=== PATIENT | female | born 1960 | race African-American/Black ===

== ENCOUNTER 2017-08-09 16:09 | Inpatient (IN) | payer BC ==
[~2017-08-09] VITALS: Ht 175.3 cm; Wt 96.2 kg
[2017-08-09] MEDS ORDERED: ALBUTEROL SULFATE 2.5 MG/3 ML NEBU. CONT NEB ONE ×2 (16:15→18:45)
[2017-08-09] MEDS ORDERED: methylPREDNISolone SOD SUCC PF 125 MG/2 ML VIAL. IV ONE (16:15)
[2017-08-09] MEDS ORDERED: IPRATROPIUM BROMIDE 0.5 MG/2.5 ML NEBU. NEB ONE ×2 (16:15→18:45)
--- NOTE | 2017-08-09 16:22 | PHYS DOC ---
Adult General Chief Complaint Chief Complaint: ALLERGIC REACTION HPI HPI Patient is a 57 year old female who presents with acute onset shortness breath, sweats and chest tightness with wheezing while at the dentist office. Patient is a just be injected when symptoms began. She states she has numerous medication allergies. Denies hives, oral lingual or airway swelling chest tightness. Patient hypoxic and hypertensive on EMS arrival. Albuterol breathing treatment given and patient placed on oxygen. Some improvement prior to ED arrival. Patient is a one pack per day smoker. Denies history of COPD, bronchitis, emphysema, asthma or chronic lung disease. No other acute symptoms or complaints. History of this obtained from the patient and from EMS[] Review of Systems Review of Systems Review symptoms as per history of present illness all other review symptoms All other systems were reviewed and found to be within normal limits, except as documented in this note. Current Medications Current Medications Current Medications Medications (Trade) Dose Ordered Sig/Joao Start Time Stop Time Status Last Admin Dose Admin Albuterol Sulfate (Ventolin Neb Soln) 10 mg 1X ONCE 08/09/17 16:15 08/09/17 16:22 DC 08/09/17 16:54 10 MG Ipratropium [place] (Atrovent) 0.5 mg 1X ONCE 08/09/17 16:15 08/09/17 16:22 DC 08/09/17 16:54 0.5 MG Methylprednisolone Sodium Succinate (SOLU-Medrol 125MG VIAL) 125 mg 1X ONCE 08/09/17 16:15 08/09/17 16:22 DC 08/09/17 16:35 125 MG Allergies Allergies Allergies Coded Allergies Type Severity Reaction Last Updated Verified articaine Allergy Intermediate 08/09/17 Yes aspirin Allergy Intermediate 08/09/17 Yes ibuprofen Allergy Intermediate 08/09/17 Yes morphine Allergy Intermediate 08/09/17 Yes Physical Exam Physical Exam Constitutional: Well developed, well nourished, anxious,. [] HENT: Normocephalic, atraumatic, bilateral external ears normal, oropharynx moist, no oral or airway swelling, nose normal. [] Eyes: PERRLA, EOMI, conjunctiva normal, no discharge. [] Neck: Normal range of motion, no tenderness, supple, no stridor. [] Cardiovascular:Heart rate regular rhythm, no murmur [] Lungs & Thorax: Patient's labored, apparently with pursed lip breathing, tachypnea, talks in 3-5 word sentences, breath sounds moderately diminished with expiratory wheezes.[] Skin: No hives appreciated. [] Neurologic: Alert and oriented X 3, normal motor function, normal sensory function, no focal deficits noted. [] Current Patient Data Vital Signs Vital Signs Date Time Temp Pulse Resp B/P (MAP) Pulse Ox O2 Delivery O2 Flow Rate FiO2 08/09/17 17:00 110 32 165/78 (107) 95 Aerosol Mask 08/09/17 16:09 98.9 4.0 98.9 EKG EKG [EKG: Sinus tach, rate 114, left atrial enlargement, left ventricular enlargement, QTC 475. Interpretation by this provider.] Radiology/Procedures Radiology/Procedures [Chest x-ray: No acute cardiopulmonary disease.] Course & Med Decision Making Course & Med Decision Making Pertinent Labs and Imaging studies reviewed. (See chart for details) [Patient with acute allergic reaction with respiratory distress/hypoxia and hives. Courtesy admission orders. No oral pharyngeal swelling appreciated. Patient given steroids, nebs, antihistamines with initial improvement but recurrence while in the emergency department. Breathing treatment repeated, patient placed in oxygen with improved symptoms. Blood pressure is chronically elevated. Patient denies chest pain, chest tightness. Dr. Villa to admit.] Carter Disclaimer Carter Disclaimer This electronic medical record was generated, in whole or in part, using a voice recognition dictation system. Departure Departure Impression: Primary Impression: Allergic reaction caused by a drug Additional Impression: Asthma exacerbation Disposition: ADMITTED INPATIENT Admitting Physician: Sherita Villa Condition: IMPROVED Problem Qualifiers MADI CLARK DO Aug 09, 2017 16:22
--- NOTE | 2017-08-09 16:47 | EKG ---
[facility] [address] [place] [address] Test Date: 2017-08-09 Test Time: 16:38:12 Pat Name: REGIS ROMERO Department: Room: Gender: F Attraction Worker: : 1960 Requested By: MADI CLARK Order Number: [id number] Reading MD: Measurements Intervals [place] Rate: 113 P: 27 TX: 132 QRS: 1 QRSD: 90 T: 112 QT: 342 QTc: 475 Interpretive Statements SINUS TACHYCARDIA LEFT ATRIAL ABNORMALITY LVH WITH REPOLARIZATION ABNORMALITY ABNORMAL ECG No previous ECG available for comparison
[2017-08-09] MEDS ORDERED: FAMOTIDINE 20 MG/2 ML VIAL IVP ONE (18:00)
[2017-08-09] MEDS ORDERED: diphenhydrAMINE 50 MG/ML VIAL IVP ONE (18:00)
[2017-08-09] MEDS ORDERED: ALBUTEROL SULFATE 2.5 MG/3 ML NEBU. NEB ONE (19:00)
[2017-08-09 19:11] LABS: BASO % 0 % (0-3); EOS % 0 % (0-3); HEMATOCRIT 44.7 % (36.0-47.0); HEMOGLOBIN 14.8 g/dL (12.0-15.5); LYMPH # 0.8 x10^3/uL (1.0-4.8); LYMPH % 8 % (24-48); MEAN CORPUSCULAR HEMOGLOBIN 34 pg (25-35); MEAN CORPUSCULAR HGB CONC 33 g/dL (31-37); MEAN CORPUSCULAR VOLUME 102 fL (79-100); MONO % 1 % (0-9); NEUT % 91 % (31-73); PLATELET COUNT 269 x10^3/uL (140-400); RED BLOOD COUNT 4.39 x10^6/uL (3.50-5.40); RED CELL DISTRIBUTION WIDTH 14.6 % (11.5-14.5)
[2017-08-09] MEDS ORDERED: ONDANSETRON PF 4 MG/2 ML VIAL. IV PRN (19:30)
[2017-08-09] MEDS ORDERED: diphenhydrAMINE 50 MG/ML VIAL IVP PRN (19:30)
[2017-08-09] MEDS: IPRATRPIUM/ALBUTEROL 0.5/2.5MG 3 ML NEBU. NEB SCH (19:31)
[2017-08-09 19:40] LABS: % EOS 1 % (0-5); CALCIUM 9.3 mg/dL (8.5-10.1); CREATININE 0.9 mg/dL (0.6-1.0); GFR 78.4; POTASSIUM 3.5 mmol/L (3.5-5.1)
[2017-08-09 19:41] LABS: PLT ESTIMATE ADEQUATE (ADEQUATE)
[2017-08-09 19:45] LABS: ALBUMIN 4.3 g/dL (3.4-5.0); ALBUMIN/GLOBULIN RATIO 0.9 (1.0-1.7); TOTAL BILIRUBIN 0.7 mg/dL (0.2-1.0)
[2017-08-09] MEDS ORDERED: DIPH50CA PO (20:00)
[2017-08-09] MEDS ORDERED: TRAM50TA PO (20:00)
[2017-08-09] MEDS ORDERED: NICOTINE 21MG PATCH. TD PRN (20:15)
--- NOTE | 2017-08-09 20:56 | RAD ---
AP chest radiograph 08/09/2017 Clinical indications: Shortness of air. COMPARISON: None. FINDINGS: Cardiac enlargement with pulmonary venous congestion and diffuse interstitial opacities. No pneumothorax or focal consolidation. There is a small nodular density overlying the right lung base level. IMPRESSION: 1. Small nodular density overlying the right lung base level. Nonemergent CT chest is recommended as noncalcified pulmonary nodule cannot be excluded. 2. Findings of CHF or volume overload with cardiomegaly and pulmonary edema. Electronically signed by: Philip Hudson MD (08/09/2017 8:52 PM) [facility]
[2017-08-09] MEDS: FAMOTIDINE 20 MG/2 ML VIAL IVP SCH (21:00)
[2017-08-09 21:22] VITALS: BP 144/88
[2017-08-09] MEDS ORDERED: ACETAMINOPHEN 325 MG TABLET. PO PRN (23:45)
[2017-08-09 23:47] VITALS: BP 141/65
[2017-08-10] MEDS: methylPREDNISolone SOD SUCC PF 125 MG/2 ML VIAL. IV SCH ×2 (00:20→06:03)
[2017-08-10 03:32] VITALS: BP 133/68
[2017-08-10 05:13] LABS: BASO % 0 % (0-3); EOS % 0 % (0-3); HEMOGLOBIN 13.4 g/dL (12.0-15.5); LYMPH # 0.8 x10^3/uL (1.0-4.8); LYMPH % 11 % (24-48); MEAN CORPUSCULAR HEMOGLOBIN 33 pg (25-35); MEAN CORPUSCULAR HGB CONC 33 g/dL (31-37); MEAN CORPUSCULAR VOLUME 102 fL (79-100); MONO % 0 % (0-9); NEUT % 89 % (31-73); PLATELET COUNT 238 x10^3/uL (140-400); RED BLOOD COUNT 4.02 x10^6/uL (3.50-5.40); WHITE BLOOD COUNT 7.7 x10^3/uL (4.0-11.0)
[2017-08-10 05:33] LABS: CALCIUM 9.2 mg/dL (8.5-10.1); CREATININE 1.1 mg/dL (0.6-1.0); GFR 62.2; POTASSIUM 4.1 mmol/L (3.5-5.1)
[2017-08-10] MEDS ORDERED: traMADol 50 MG TABLET PO PRN (06:30)
[2017-08-10 07:00] VITALS: BP 150/71
[2017-08-10] MEDS: IPRATRPIUM/ALBUTEROL 0.5/2.5MG 3 ML NEBU. NEB SCH (07:55)
--- NOTE | 2017-08-10 08:18 | PDOC1 ---
History and Physical Date of Admission Date of Admission 08/09/17 Identification/Chief Complaint Chief Complaint Allergic reaction Problems: (1) Allergic reaction caused by a drug (2) Asthma exacerbation Source Source: Patient History of Present Illness History of Present Illness 57 year old AAF was at her dentist when she received articaine and got wheezy and short of breath. Patient has numerous allergies and felt like she was having an allergic reaction. Patient was getting steroids, pepcid, nebulizers, and steroids. Patient was feeling better but then started to wheeze again. Patient currently feeling better on 3L of oxygen but doesn't need it. Patient denies any chest pain, fever, chills, nausea, and vomiting. Current Problem List Problem List Problems Medical Problems: (1) Allergic reaction caused by a drug Status: Acute (2) Asthma exacerbation Status: Acute Current Medications Current Medications Current Medications Medications (Trade) Dose Ordered Sig/Joao Start Time Stop Time Status Last Admin Dose Admin Acetaminophen (Tylenol) 650 mg PRN Q6HRS PRN 08/09/17 23:45 08/10/17 00:29 650 MG Albuterol Sulfate (Ventolin Neb Soln) 5 mg 1X ONCE 08/09/17 19:00 08/09/17 19:01 DC 08/09/17 19:11 5 MG Albuterol/ Ipratropium (Duoneb) 3 ml RTQID 08/09/17 20:00 08/10/17 19:59 08/10/17 07:55 3 ML Diphenhydramine HCl (Benadryl) 25 mg PRN Q6HRS PRN 08/09/17 19:30 Famotidine (Pepcid Vial) 20 mg BID 08/09/17 21:00 08/09/17 21:00 20 MG Ipratropium [place] (Atrovent) 0.5 mg 1X ONCE 08/09/17 18:45 08/09/17 18:46 DC 08/09/17 19:11 0.5 MG Methylprednisolone Sodium Succinate (SOLU-Medrol 125MG VIAL) 62.5 mg Q6HRS 08/10/17 00:00 08/10/17 06:03 62.5 MG Nicotine (Nicoderm Cq 21mg) 1 patch PRN DAILY PRN 08/09/17 20:15 08/10/17 06:48 1 PATCH Ondansetron HCl (Zofran) 4 mg PRN Q8HRS PRN 08/09/17 19:30 08/10/17 19:29 Tramadol HCl (Ultram) 50 mg PRN Q6HRS PRN 08/10/17 06:30 08/10/17 06:46 50 MG Allergies Allergies Allergies Coded Allergies Type Severity Reaction Last Updated Verified articaine Allergy Intermediate 08/09/17 Yes aspirin Allergy Intermediate 08/09/17 Yes ibuprofen Allergy Intermediate 08/09/17 Yes morphine Allergy Intermediate 08/09/17 Yes ROS Review of System CONSTITUTIONAL: No fever or chills EYES: No recent changes SKIN: No rash or itching CARDIOVASCULAR: No chest pain, syncope, palpitations, or edema RESPIRATORY: + SOB and cough GASTROINTESTINAL: No nausea, vomiting or abdominal pain NEUROLOGICAL: No headaches or weakness ENDOCRINE: No cold or heat intolerance GENITOURINARY: No urgency or frequency of urination MUSCULOSKELETAL: No back pain or joint pain LYMPHATICS: No enlarged lymph nodes PSYCHIATRIC: No anxiety or depression Physical Exam Physical Exam GEN.: No apparent distress. Alert and oriented. HEENT: Head is normocephalic, atraumatic NECK: Supple. LUNGS: diminished breath sounds bilaterally HEART: RRR, S1, S2 present. Peripheral pulses intact ABDOMEN: Soft, nontender. Positive bowel sounds. EXTREMITIES: Without any cyanosis. NEUROLOGIC: Normal speech, normal tone PSYCHIATRIC: Normal affect, normal mood. SKIN: No ulcerations Vitals Vitals Vital Signs Date Time Temp Pulse Resp B/P (MAP) Pulse Ox O2 Delivery O2 Flow Rate FiO2 08/10/17 07:58 93 Nasal Cannula 3.0 08/10/17 07:00 98.2 97 20 150/71 (97) 98.2 Labs Labs Laboratory Tests Test 08/09/17 19:00 08/10/17 04:35 White Blood Count 10.0 x10^3/uL (4.0-11.0) 7.7 x10^3/uL (4.0-11.0) Red Blood Count 4.39 x10^6/uL (3.50-5.40) 4.02 x10^6/uL (3.50-5.40) Hemoglobin 14.8 g/dL (12.0-15.5) 13.4 g/dL (12.0-15.5) Hematocrit 44.7 % (36.0-47.0) 41.0 % (36.0-47.0) Mean Corpuscular Volume 102 fL (79-100) 102 fL (79-100) Mean Corpuscular Hemoglobin 34 pg (25-35) 33 pg (25-35) Mean Corpuscular Hemoglobin Concent 33 g/dL (31-37) 33 g/dL (31-37) Red Cell Distribution Width 14.6 % (11.5-14.5) 15.0 % (11.5-14.5) Platelet Count 269 x10^3/uL (140-400) 238 x10^3/uL (140-400) Neutrophils (%) (Auto) 91 % (31-73) 89 % (31-73) Lymphocytes (%) (Auto) 8 % (24-48) 11 % (24-48) Monocytes (%) (Auto) 1 % (0-9) 0 % (0-9) Eosinophils (%) (Auto) 0 % (0-3) 0 % (0-3) Basophils (%) (Auto) 0 % (0-3) 0 % (0-3) Neutrophils # (Auto) 9.1 x10^3uL (1.8-7.7) 6.9 x10^3uL (1.8-7.7) Lymphocytes # (Auto) 0.8 x10^3/uL (1.0-4.8) 0.8 x10^3/uL (1.0-4.8) Monocytes # (Auto) 0.1 x10^3/uL (0.0-1.1) 0.0 x10^3/uL (0.0-1.1) Eosinophils # (Auto) 0.0 x10^3/uL (0.0-0.7) 0.0 x10^3/uL (0.0-0.7) Basophils # (Auto) 0.0 x10^3/uL (0.0-0.2) 0.0 x10^3/uL (0.0-0.2) Segmented Neutrophils % 89 % (35-66) Lymphocytes % 9 % (24-48) Monocytes % 1 % (0-10) Eosinophils % 1 % (0-5) Platelet Estimate Adequate (ADEQUATE) Sodium Level 140 mmol/L (136-145) 139 mmol/L (136-145) Potassium Level 3.5 mmol/L (3.5-5.1) 4.1 mmol/L (3.5-5.1) Chloride Level 102 mmol/L (98-107) 104 mmol/L (98-107) Carbon Dioxide Level 25 mmol/L (21-32) 22 mmol/L (21-32) Anion Gap 13 (6-14) 13 (6-14) Blood Urea Nitrogen 16 mg/dL (7-20) 15 mg/dL (7-20) Creatinine 0.9 mg/dL (0.6-1.0) 1.1 mg/dL (0.6-1.0) Estimated GFR (Cockcroft-Gault) 78.4 62.2 BUN/Creatinine Ratio 18 (6-20) Glucose Level 126 mg/dL (70-99) 199 mg/dL (70-99) Calcium Level 9.3 mg/dL (8.5-10.1) 9.2 mg/dL (8.5-10.1) Total Bilirubin 0.7 mg/dL (0.2-1.0) Aspartate Amino Transf (AST/SGOT) 18 U/L (15-37) Alanine Aminotransferase (ALT/SGPT) 20 U/L (14-59) Alkaline Phosphatase 81 U/L (46-116) SA-Ras-Q-Type Natriuretic Peptide 2194 pg/mL (0-124) Total Protein 9.0 g/dL (6.4-8.2) Albumin 4.3 g/dL (3.4-5.0) Albumin/Globulin Ratio 0.9 (1.0-1.7) Laboratory Tests Test 08/09/17 19:00 08/10/17 04:35 White Blood Count 10.0 x10^3/uL (4.0-11.0) 7.7 x10^3/uL (4.0-11.0) Red Blood Count 4.39 x10^6/uL (3.50-5.40) 4.02 x10^6/uL (3.50-5.40) Hemoglobin 14.8 g/dL (12.0-15.5) 13.4 g/dL (12.0-15.5) Hematocrit 44.7 % (36.0-47.0) 41.0 % (36.0-47.0) Mean Corpuscular Volume 102 fL (79-100) 102 fL (79-100) Mean Corpuscular Hemoglobin 34 pg (25-35) 33 pg (25-35) Mean Corpuscular Hemoglobin Concent 33 g/dL (31-37) 33 g/dL (31-37) Red Cell Distribution Width 14.6 % (11.5-14.5) 15.0 % (11.5-14.5) Platelet Count 269 x10^3/uL (140-400) 238 x10^3/uL (140-400) Neutrophils (%) (Auto) 91 % (31-73) 89 % (31-73) Lymphocytes (%) (Auto) 8 % (24-48) 11 % (24-48) Monocytes (%) (Auto) 1 % (0-9) 0 % (0-9) Eosinophils (%) (Auto) 0 % (0-3) 0 % (0-3) Basophils (%) (Auto) 0 % (0-3) 0 % (0-3) Neutrophils # (Auto) 9.1 x10^3uL (1.8-7.7) 6.9 x10^3uL (1.8-7.7) Lymphocytes # (Auto) 0.8 x10^3/uL (1.0-4.8) 0.8 x10^3/uL (1.0-4.8) Monocytes # (Auto) 0.1 x10^3/uL (0.0-1.1) 0.0 x10^3/uL (0.0-1.1) Eosinophils # (Auto) 0.0 x10^3/uL (0.0-0.7) 0.0 x10^3/uL (0.0-0.7) Basophils # (Auto) 0.0 x10^3/uL (0.0-0.2) 0.0 x10^3/uL (0.0-0.2) Segmented Neutrophils % 89 % (35-66) Lymphocytes % 9 % (24-48) Monocytes % 1 % (0-10) Eosinophils % 1 % (0-5) Platelet Estimate Adequate (ADEQUATE) Sodium Level 140 mmol/L (136-145) 139 mmol/L (136-145) Potassium Level 3.5 mmol/L (3.5-5.1) 4.1 mmol/L (3.5-5.1) Chloride Level 102 mmol/L (98-107) 104 mmol/L (98-107) Carbon Dioxide Level 25 mmol/L (21-32) 22 mmol/L (21-32) Anion Gap 13 (6-14) 13 (6-14) Blood Urea Nitrogen 16 mg/dL (7-20) 15 mg/dL (7-20) Creatinine 0.9 mg/dL (0.6-1.0) 1.1 mg/dL (0.6-1.0) Estimated GFR (Cockcroft-Gault) 78.4 62.2 BUN/Creatinine Ratio 18 (6-20) Glucose Level 126 mg/dL (70-99) 199 mg/dL (70-99) Calcium Level 9.3 mg/dL (8.5-10.1) 9.2 mg/dL (8.5-10.1) Total Bilirubin 0.7 mg/dL (0.2-1.0) Aspartate Amino Transf (AST/SGOT) 18 U/L (15-37) Alanine Aminotransferase (ALT/SGPT) 20 U/L (14-59) Alkaline Phosphatase 81 U/L (46-116) FL-Krq-[id number]-Type Natriuretic Peptide 2194 pg/mL (0-124) Total Protein 9.0 g/dL (6.4-8.2) Albumin 4.3 g/dL (3.4-5.0) Albumin/Globulin Ratio 0.9 (1.0-1.7) VTE Prophylaxis Ordered VTE Prophylaxis Devices: No VTE Pharmacological Prophylaxi: Yes Assessment/Plan Assessment/Plan ~ Allergic Reaction ~ Acute hypoxic respiratory Failure secondary to above Plan: Continue with IV steroids, benadryl, pepcid, and nebulizers Possible discharge later today SASHA CLAIRE MD Aug 10, 2017 08:18
[2017-08-10] MEDS: FAMOTIDINE 20 MG/2 ML VIAL IVP SCH (08:24)
[2017-08-10 11:00] VITALS: BP 143/82
--- NOTE | 2017-08-10 11:04 | DISCH ---
DISCHARGE INSTRUCTIONS Condition on Discharge Condition on Discharge: Stable Activity After Discharge Activity Instructions for Disc: No restrictions Diet after Discharge Diet after Discharge: Regular Contacting the DR. after DC Call your doctor for: If your condition worsens Follow-Up Follow up with: Follow-up with PCP in 1 week SASHA CLAIRE MD Aug 10, 2017 11:04
--- NOTE | 2017-08-10 18:22 | PDOC3 ---
Discharge Summary [facility] Date of Admission: Aug 09, 2017 Discharge Date: Aug 10, 2017 Admitting Diagnosis 1. Allergic Reaction Problems: Final Diagnosis Problems Medical Problems: (1) Allergic reaction caused by a drug Status: Acute (2) Asthma exacerbation Status: Acute Brief Hospital Course Ms. Zimmerman is a 57 year old AAF who was at her dentist when she got a medication called articaine that made her get short of breath and start to wheeze. Patient was brought to the ED and got benadryl, pepcid, IV steroids, and nebulizers patient was admitted for further management. Patient the next day was feeling better and was able to get off oxygen and had no more issues and she was discharged home. Patient History: Unknown Problems: Disposition Home CONDITION AT DISCHARGE: Stable Diet regular Scheduled Diphenhydramine Hcl (Diphenhydramine Hcl), 75 MG PO DAILY, (Reported) Scheduled PRN Tramadol Hcl (Tramadol Hcl), 50 MG PO Q4H PRN for PAIN, (Reported) Follow Up Follow-up PCP in 1 week SASHA CLAIRE MD Aug 10, 2017 18:22
== END 2017-08-10 12:20 | disposition home or self-care (01) | DRG 189 ==
LOC: ER 16:09 → 6 SOUTH 17:00
PROVIDERS: ADMIT Internal Medicine; ATTEND Internal Medicine
DX: J96.01 Acute respiratory failure with hypoxia (principal); J45.901 Unspecified asthma with (acute) exacerbation; F17.210 Nicotine dependence, cigarettes, uncomplicated; T41.3X5A Adverse effect of local anesthetics, initial encounter; Z79.899 Other long term (current) drug therapy; Y92.89 Other specified places as the place of occurrence of the external cause; Z88.6 Allergy status to analgesic agent; Z88.1 Allergy status to other antibiotic agents; Z88.8 Allergy status to other drugs, medicaments and biological substances
CPT/HCPCS: 36415; 71010; 80048; 80053; 83880; 85007; 85025; 93005; 94640; 94645; 96374; 96375; J1200; J2930; J7613; J7620; J7644; S0028; 99285-25